=== PATIENT | male | born 1965 | race Caucasian/White ===

== ENCOUNTER 2025-02-17 11:00 | Emergency (ER) | payer OTHER, SELFPAY ==
[2025-02-17 11:07] VITALS: BP 125/86
[2025-02-17 12:13] VITALS: BMI 19.5
[2025-02-17 12:23] VITALS: BP 114/77
[2025-02-17 12:33] LABS: % Basophils 0.7 % (0-2); % Eosinophils 1.3 % (0-6); % Immature Granulocytes 0.1 % (0-0.5); % Lymphocytes 18.4 % (20.5-51.1); % Monocytes 8.8 % (1.7-9.3); % Neutrophils 70.7 % (42.2-75.2); Absolute Basophils 0.1 10^3/uL (0-0.2); Absolute Eosinophils 0.1 10^3/uL (0-0.7); Absolute Lymphocytes 1.4 10^3/uL (1.2-3.4); Absolute Monocytes 0.7 10^3/uL (0.1-0.6); Absolute Neutrophils 5.4 10^3/uL (1.4-6.5); Hemoglobin 14.2 g/dL (13.0-18.0); Mean Corp Hgb Conc. 34.6 g/dL (33.0-37.0); Mean Corpuscular Hgb 32.5 pg (27.0-31.0); Mean Corpuscular Volume 93.8 fL (80.0-94.0); Mean Platelet Volume 9.2 fL (7.4-10.4); Nucleated Red Blood Cells % 0 % (-); Platelet Count 310 10^3/uL (130-400); Red Blood Cell Count 4.37 10^6/uL (4.70-6.10); White Blood Cell Count 7.6 10^3/uL (4.8-10.8)
[2025-02-17 12:50] LABS: ALT (SGPT) 15 U/L (0-50); AST (SGOT) 17 U/L (17-59); Albumin 3.4 g/dl (3.5-5.0); Alkaline Phosphatase 90 U/L (38-126); Blood Urea Nitrogen 11 mg/dl (9-20); Calcium 8.6 mg/dl (8.4-10.2); Carbon Dioxide 26 mmol/L (22-30); Chloride 107 mmol/L (98-107); Estimated Creatinine Clearance 104 ml/min; Glucose 93 mg/dl (70-99); Lipase 74 U/L (23-300); Potassium 4.4 mmol/L (3.5-5.1); Sodium 137 mmol/L (135-145); Total Bilirubin 0.5 mg/dl (0.2-1.3); Total Protein 6.1 g/dl (6.3-8.2); eGFR > 60.00
[2025-02-17 12:52] LABS: D-Dimer 9.16 ug/mlFEU (0.00-0.50)
[2025-02-17 13:00] VITALS: BP 126/70
[2025-02-17 13:01] LABS: Troponin I < 0.012 ng/ml
--- NOTE | 2025-02-17 13:47 | ED.GENMED ---
History of Present Illness
General
Chief Complaint: Chest Pain
Source: patient
Exam Limitations: none
Time Seen by Provider: 02/17/25 11:16
Nursing documentation reviewed up to this point in time: agreed with
History of Present Illness
History of Present Illness:
59-year-old male with past medical history as noted presents to the emergency room for evaluation of chest pain. Patient reports onset of symptoms a few days ago and they have been intermittent since then. He describes a sharp pain left chest
radiates towards the back. It seems to be worse when he lays down and better when he sits up. No other triggering or relieving factors noted. He says that he has had some mild associated shortness of breath, mild dizziness, mild headache. He
denies any recent cough or fever/chills. He has had some nausea but no vomiting. He says he had a few episodes of loose stools as well. No abdominal pain. He says he has never had exertional symptoms. He denies similar symptoms in the past. He
denies any personal or family history of heart disease. Denies any recent travel or history of DVT/PE. He is a smoker denies drug or alcohol use.
Review of Systems
Review of Systems
All Other Systems: ROS reviewed and negative except as documented in HPI and ROS
Constitutional: Denies fever or chills
Respiratory: Denies cough or trouble breathing
Cardiac: Reports chest pain; Denies palpitations
ABD/GI: Reports nausea and diarrhea; Denies abdominal pain or vomiting
: Denies flank pain
Musculoskeletal: Denies neck pain or back pain
Neurological: Reports dizzy and headache; Denies weakness or numbness
Phy Exam
Physical Exam
Physical Exam:
General: Awake, alert, oriented x3; no acute distress
Head: Normocephalic, atraumatic
Eyes: Conjunctiva normal
Throat: Airway intact, handling secretions
Neck: Trachea midline, supple without meningismus
Lungs: Clear to auscultation bilaterally, no wheezing, rales, rhonchi
Heart: Regular rate and rhythm, no murmurs, gallops, or rubs appreciated
Abd: Soft, non distended, nontender
Neuro: No gross deficit
Skin: no rash
Extremities: No edema in extremities, equal pulses in all extremities
Scores
Heart Failure Risk
Heart Failure Risk Score: Not Applicable
Heart Score for Chest Pain Patients
STEMI patient?: No
History: Slightly or Non-Suspicious
ECG: Normal
Age: >45 - <65 years
Risk Factors: 1 or 2 Risk Factors
Troponin: </= Normal Limit
Heart Score for Chest Pain Patients: 2
Heart Score Risk: 2.5% MACE over next 6 weeks
Withdrawal Assessment of Alcohol
Withdrawal Assessment Completed?: Not applicable
Course
Orders/Labs/Results
Orders:
Orders
02/17/25 11:01
EKG [Electrocardiogram (*1)] Urgent
Reason for Study: Chest Pain
EKG- Treatment ONCE
02/17/25 11:18
CR Chest - 2 Views Urgent
Comment:
Reason For Exam: chest pain
02/17/25 12:20
C-Reactive Protein Urgent
Comment: ADD ON
Complete Blood Count/With Diff Urgent
Comprehensive Metabolic Panel Urgent
D-Dimer Urgent
Erythrocyte Sed Rate Urgent
Comment: ADD ON
Lipase Urgent
Troponin I Urgent
02/17/25 13:11
CT Chest PE Study Urgent
Comment:
Reason For Exam: chest pain, +dimer
02/17/25 13:47
Add On- LAB Urgent
Tests Added?: ESR, CRP
02/17/25 15:31
Troponin I Urgent
02/17/25 16:23
US Periph Venous LOWER Ext Theo Urgent
Comment:
Reason For Exam: elevated d-dimer
Abnormal Lab Results
02/17/25
12:20
RBC 4.37 L 10^6/uL
(4.70-6.10)
MCH 32.5 H pg
(27.0-31.0)
Absolute Monos (auto) 0.7 H 10^3/uL
(0.1-0.6)
Lymphocytes % 18.4 L %
(20.5-51.1)
D-Dimer 9.16 H ug/mlFEU
(0.00-0.50)
Total Protein 6.1 L g/dl
(6.3-8.2)
Albumin 3.4 L g/dl
(3.5-5.0)
02/17/25 12:20
02/17/25 12:20
Vital Signs
Initial and Last Documented VS:
Initial Vital Signs
Temp Pulse Resp BP Pulse Ox
36.6 C 72 18 125/86 98
02/17/25 11:07 02/17/25 11:07 02/17/25 11:07 02/17/25 11:07 02/17/25 11:07
Last Documented Vital Signs
Temp Pulse Resp BP Pulse Ox
36.6 C 57 19 112/67 98
02/17/25 11:07 02/17/25 15:45 02/17/25 14:30 02/17/25 14:00 02/17/25 14:30
MDM/Problems Addressed
Differential Diagnosis Includes:
Pericarditis/myocarditis, ACS/angina, PE, pneumothorax, costochondritis, GERD
MDM/Problems Addressed:
59-year-old male presents for evaluation of chest pain left-sided sharp radiates to the back for the past few days. He says symptoms are intermittent and seem to be somewhat triggered when lying flat. He does admit to some nausea and loose stools
recently�question whether he could have mild viral illness concurrently. His vitals are normal here and his physical exam is as above. His EKG shows sinus rhythm with no STEMI. Will send off labs including a CBC and a CMP, troponin, D-dimer.
Check ESR and CRP. Check chest x-ray. Monitor closely reassess after the above.
Labs reviewed: CBC unremarkable, CMP no clinically significant abnormalities. His troponin is undetectable. His D-dimer is markedly elevated at 9.16. Chest x-ray showed no acute disease. Will send for a CT chest to rule out PE. Inflammatory
markers are pending.
ESR and CRP are normal. His CT chest is negative for pulmonary embolism. His vital signs are normal. Unclear etiology to markedly elevated D-dimer�I do think with the number that hide he should be ruled out for DVT as well and so we will send him
for an ultrasound of his legs. Will discuss with hematology for further recommendations.
Discussed with hematology agreed with ruling out thromboembolism; d-dimer very nonspecific, workup would be symptom guided. His repeat troponin is undetectable and his symptoms are nonexertional I have very low suspicion that he has angina as a
cause for his chest pain. Pending ultrasound of his legs if this is negative I think he can be discharged�by history it certainly sounds like this could be pericarditis and I do not think would be unreasonable to trial colchicine and NSAIDs.
Follow-up with his primary doctor and I think he should follow-up with cardiology as he did have CAD on his CT chest and has risk factors for heart disease although symptoms again sound atypical for angina.
Had a long discussion with patient he wishes to go home. We spoke about ultrasound of the leg but patient wishes to forego this. He has no edema in the legs, no signs or symptoms of DVT and so very low clinical suspicion. I did speak to him about
multiple concerning things today�will I do feel his clinical syndrome is consistent with pericarditis and it is reasonable to trial colchicine and NSAIDs, I expressed that he did have CAD on his CT and that he needs to see cardiology expeditiously.
He indicated understanding. I also spoke to him about the D-dimer and explained that he should follow-up with his primary doctor very closely for further evaluation after this finding. He indicated understanding. All questions answered.
Chronic conditions affecting care:
Smoker
*Radiology
Radiology exam reviewed: preliminary read by ED provider and radiology read reviewed
*Pulse Oximetry
Patient hypoxic: no
*EKG
Interpreted by ED Provider?: Yes
Heart Rate: 68
Rate: normal
Rhythm: sinus
[place]: normal axis
Interval: normal interval
QRS Pattern: normal QRS
Ischemia: no ischemia
*Critical Care Note
Total Time (30-74mins, 75-104mins- exclusive of procedures): Not Applicable
Data Reviewed
Source: patient and spouse
Further Testing Considered But Not Given:
Considered ultrasound of the legs
Patient Management
Discussion with other providers: P[employer] (Discussed with hematology)
ED Attending Note
-
Portions of this chart may have been created with voice recognition software.� Occasional wrong word or��sound alike� substitutions may have occurred due to the inherent limitations of voice recognition software.
Discharge Plan
Departure
Patient Disposition: Home (Routine Discharge)
Date of Disposition: 02/17/25
Time of Disposition: 16:36
Patient with high blood pressure during this ER visit?: No
Discharge Problem:
Chest pain, D-dimer, elevated
Instructions: Chest Pain DCA Follow Up
Prescriptions:
New
colchicine 0.6 mg tablet
0.6 mg PO BID Qty: 30 0RF
Referrals:
ANKIT PERALTA MD [Family Provider] - Follow up in 5-7 days
Bert Rosen MD [Active] - Call in 1-3 days for appt
Activity Restrictions/Additional Instructions:
Thank you for visiting the Emergency Department at [facility].
1. Please schedule a follow up appointment as directed. Call first thing tomorrow morning to make an appointment.
2. If indicated, please take your medications as instructed and indicated on discharge paperwork.
3. If any of your symptoms do not improve, or persist, or become more severe within 6-12 hours, please return to the emergency department for further care.
4. Please return to the emergency department if you develop a headache, neck pain/stiffness, fever greater than 100.4F, chest pain, shortness of breath, persistent nausea, vomiting, slurred speech, difficulty walking, numbness/tingling, weakness,
signs of infection or any other symptoms that are worrisome to you.
Please call [phone] if you have any questions.
Interventions
Interventions:
*Risk Screen - Suicide Last Done: 02/17/25 11:07
*General Assessment Last Done: 02/17/25 11:07
*Neglect/Abuse Screening Last Done: 02/17/25 11:07
*ED- Fall Risk Assessment Last Done: 02/17/25 12:13
*ED COVID-19 Vaccine History Last Done: 02/17/25 12:13
ED- Cardiac Assessment Last Done: 02/17/25 12:20
Discharge Date and Time
Print Language: KOSOVAN
[2025-02-17 14:00] VITALS: BP 112/67
[2025-02-17 14:48] LABS: Erythrocyte Sed Rate 13 mm/hour (0-20)
[2025-02-17 15:25] LABS: C-Reactive Protein < 5.00 mg/L (0.0-10.00)
[2025-02-17 16:03] LABS: Troponin I < 0.012 ng/ml
== END 2025-02-17 16:45 | disposition home or self-care (01) ==
LOC: EMR 11:00
PROVIDERS: EMERGENCY PHYSICIAN Emergency Medicine; FAMILY PHYSICIAN Student in an Organized Health Care Education/Training Program
DX: R07.9 Chest pain, unspecified (principal); R79.1 Abnormal coagulation profile; F17.200 Nicotine dependence, unspecified, uncomplicated
CPT/HCPCS: 99285; 71046; 71275; 80053; 83690; 84484; 85025; 85379; 85652; 86140; 93005; Q9967